=== PATIENT | male | born 1955 | race African-American/Black ===

== ENCOUNTER 2020-07-30 07:25 | Day surgery (SDC) | payer OTHER, SELFPAY ==
[2020-07-26 16:06] VITALS: BMI 27.2
--- NOTE | 2020-07-29 09:01 | HO.ANESPROP2 ---
HPI - Anesthesia Eval Consult details Narrative: 64yo M for Colonoscopy PMFSH Past Medical History Medical History Gout Hyperlipidemia Surgical History Surgical History Hx of colonoscopy Hx of esophagogastroduodenoscopy Hx of hemorrhoidectomy Social History Social History Smoking Status: Unknown if ever smoked Use of substances other than those prescribed or required for medical reasons: No Advance Directives: No Advance Directives Information Provided: No Advance Directives on File: No Meds Allergies Allergy/AdvReac Type Severity Reaction Status Date / Time No Known Allergies Allergy Verified 07/30/20 08:12 Home Medications Medication Instructions Recorded Confirmed Type allopurinol 300 mg PO DAILY 07/26/20 07/30/20 History atorvastatin 10 mg PO DAILY 07/26/20 07/30/20 History Exam Exam Date and Time: July 29, 2020 0901 Height,Weight and Vital Signs: Height 5 ft 8.5 in Weight 82.554 kg Pertinent Lab Results Pertinent Lab Results: Laboratory Tests 04/16/20 11:43 Sodium 140 Potassium 4.4 Chloride 102 BUN 17 H Creatinine 1.15 Assessment and Plan Assessment Anesthesia Assessment: Chart Reviewed
[2020-07-30 08:23] VITALS: BP 138/91; PULSE 66; RESP 16; TEMP 36.7; O2SAT 98
[2020-07-30] MEDS: Lactated Ringers 1,000 ML 100 ML IVCONT (08:28)
--- NOTE | 2020-07-30 08:58 | MHC.SHP ---
Pre-Procedural Eval Section A The patient is an INPATIENT: No Changes since office visit: No Cold of Flu in the past 2 weeks, No New Medical Problems, No Changes in Medication and No Patient answered all questions The History & Physical has been completed within 30 days and I have reviewed it.: Yes Section B Chief Complaint: screening Allergies: Allergies Allergy/AdvReac Type Severity Reaction Status Date / Time No Known Allergies Allergy Verified 07/30/20 08:12 Plan Patient has been examined and remains a candidate for the planned procedure
[2020-07-30 09:26] VITALS: BP 103/71; PULSE 79; RESP 14; TEMP 36.2; O2SAT 98
--- NOTE | 2020-07-30 09:26 | PM.OP ---
Brief Operative Note Date of Service: 07/30/20 Pre-op diagnosis: screening Post-op diagnosis: same (colon polyps) Procedure: colonoscopy Surgeon: Panfilo Garcia Anesthesia: MAC Estimated blood loss (mL): 5 Pathology: other (colon polyps) Condition: stable Disposition: PACU
[2020-07-30 09:44] VITALS: BP 134/83; PULSE 63; RESP 16; TEMP 36.2; O2SAT 99
--- NOTE | 2020-07-30 09:56 | OP_ITS ---
SURGEON: Panfilo Garcia MD INDICATIONS: Colon cancer screening. PREOPERATIVE DIAGNOSIS: POSTOPERATIVE DIAGNOSIS: PROCEDURE PERFORMED: ESTIMATED BLOOD LOSS: COMPLICATIONS: ANESTHESIA: ASSISTANTS: SPECIMENS: PROCEDURE: Colonoscopy to the terminal ileum with biopsy. MEDICATIONS: Monitored anesthesia care. DESCRIPTION OF PROCEDURE: History and physical performed. The risks and benefits of the procedure were explained to the patient and informed consent was obtained. The patient was placed in left lateral decubitus position. A digital rectal exam was performed and was found to be normal. The Olympus pediatric video colonoscope was introduced into the rectum and advanced to the cecum without difficulty. The cecum was identified by transillumination, palpation, and identification of ileocecal valve. Examination was performed. The scope was removed. He tolerated the procedure well and was transferred to recovery area in stable condition. FINDINGS: The terminal ileum was normal. The visualized colonic mucosa was normal. The quality of the prep was good. Two polyps in the cecum measured less than 5 mm were removed with biopsy forceps. Retroflexed examination showed internal hemorrhoids. IMPRESSION: Colon polyps. RECOMMENDATION: Follow up the biopsy results. MD JOYCE Bar/FRANCISCO / [id number]
== END 2020-07-30 23:59 | disposition home or self-care (01) ==
PROVIDERS: PCP Internal Medicine; Visit Provider Internal Medicine Gastroenterology
PROC: 0DJD8ZZ Inspection of Lower Intestinal Tract, Via Natural or Artificial Opening Endoscopic (ICD-10-PCS; CPT 45378; principal; 2020-07-30 09:10)
DX: Z12.11 Encounter for screening for malignant neoplasm of colon (principal); D12.0 Benign neoplasm of cecum; K64.8 Other hemorrhoids
CPT/HCPCS: 45380; 88305

== ENCOUNTER 2020-10-18 09:00 | Outpatient (REF) | payer OTHER, SELFPAY ==
[2020-10-18 10:25] LABS: Alanine Aminotransferase 21 U/L (0-40); Albumin Level 3.8 g/dL (3.5-5.0); Alkaline Phosphatase 64 U/L (39-117); Anion Gap 12 (12-20); Aspartate Amino Transferase 24 U/L (5-37); Bilirubin Total 0.7 mg/dL (0.0-1.0); Blood Urea Nitrogen 17 mg/dL (9-16); Calcium 9.2 mg/dL (8.4-10.2); Carbon Dioxide 29 mmol/L (22-29); Chloride 104 mmol/L (96-108); Cholesterol 179 mg/dL; Estimated Glomerular Filt Rate > 60; Glucose Fasting 106 mg/dL (60-99); HDL Cholesterol 62 mg/dL; LDL Cholesterol Calculated 92 mg/dl; Potassium 4.2 mmol/L (3.3-5.1); Sodium 141 mmol/L (135-145); Total Protein 7.2 g/dL (6.5-8.0); Triglycerides 125 mg/dL; Uric Acid 5.5 mg/dL (3.4-7.0)
== END 2020-10-18 09:01 | disposition home or self-care (01) ==
LOC: HO.LAB 09:00
PROVIDERS: PCP Internal Medicine; Visit Provider Internal Medicine
DX: E78.00 Pure hypercholesterolemia, unspecified (principal); M1A.0720 Idiopathic chronic gout, left ankle and foot, without tophus (tophi)
CPT/HCPCS: 36415; 80053; 80061; 84550

== ENCOUNTER 2021-04-23 08:32 | Outpatient (REF) | payer OTHER, SELFPAY ==
[2021-04-23 09:53] LABS: Alanine Aminotransferase 17 U/L (0-40); Albumin Level 4.2 g/dL (3.5-5.0); Alkaline Phosphatase 62 U/L (39-117); Anion Gap 13 (12-20); Aspartate Amino Transferase 22 U/L (5-37); Bilirubin Total 0.5 mg/dL (0.0-1.0); Blood Urea Nitrogen 24 mg/dL (9-16); Calcium 9.9 mg/dL (8.4-10.2); Carbon Dioxide 27 mmol/L (22-29); Chloride 105 mmol/L (96-108); Cholesterol 249 mg/dL; Estimated Glomerular Filt Rate 59; Glucose Fasting 88 mg/dL (60-99); HDL Cholesterol 69 mg/dL; LDL Cholesterol Calculated 165 mg/dl; Potassium 4.4 mmol/L (3.3-5.1); Sodium 141 mmol/L (135-145); Total Protein 7.8 g/dL (6.5-8.0); Triglycerides 77 mg/dL
== END 2021-04-23 08:33 | disposition home or self-care (01) ==
LOC: HO.LAB 08:32
PROVIDERS: PCP Internal Medicine; Visit Provider Internal Medicine
DX: E78.5 Hyperlipidemia, unspecified (principal); M10.9 Gout, unspecified
CPT/HCPCS: 36415; 80053; 80061; 84550

== ENCOUNTER 2021-10-22 10:23 | Outpatient (REF) | payer OTHER, SELFPAY ==
[2021-10-22 12:34] LABS: Alanine Aminotransferase 19 U/L (0-40); Alkaline Phosphatase 72 U/L (39-117); Anion Gap 12 (12-20); Aspartate Amino Transferase 25 U/L (5-37); Bilirubin Total 0.9 mg/dL (0.0-1.0); Blood Urea Nitrogen 21 mg/dL (9-16); Carbon Dioxide 30 mmol/L (22-29); Chloride 104 mmol/L (96-108); Cholesterol 231 mg/dL; Estimated Glomerular Filt Rate > 60; Glucose Fasting 103 mg/dL (60-99); HDL Cholesterol 69 mg/dL; LDL Cholesterol Calculated 144 mg/dl; Potassium 4.4 mmol/L (3.3-5.1); Sodium 142 mmol/L (135-145); Total Protein 7.6 g/dL (6.5-8.0); Triglycerides 90 mg/dL
[2021-10-22 12:45] LABS: Uric Acid 6.2 mg/dL (3.4-7.0)
== END 2021-10-22 10:24 | disposition home or self-care (01) ==
LOC: HO.LAB 10:23
PROVIDERS: PCP Internal Medicine; Visit Provider Internal Medicine
DX: E78.5 Hyperlipidemia, unspecified (principal); M10.9 Gout, unspecified
CPT/HCPCS: 36415; 80053; 80061; 84550

== ENCOUNTER 2022-04-24 08:07 | Outpatient (REF) | payer OTHER, SELFPAY ==
[2022-04-24 09:17] LABS: Alanine Aminotransferase 20 U/L (0-40); Albumin Level 3.9 g/dL (3.5-5.0); Alkaline Phosphatase 63 U/L (39-117); Anion Gap 13 (12-20); Aspartate Amino Transferase 24 U/L (5-37); Bilirubin Total 0.6 mg/dL (0.0-1.0); Blood Urea Nitrogen 21 mg/dL (9-16); Calcium 9.6 mg/dL (8.4-10.2); Carbon Dioxide 28 mmol/L (22-29); Chloride 104 mmol/L (96-108); Cholesterol 196 mg/dL; Estimated Glomerular Filt Rate > 60; Glucose Fasting 96 mg/dL (60-99); HDL Cholesterol 65 mg/dL; LDL Cholesterol Calculated 117 mg/dl; Potassium 4.1 mmol/L (3.3-5.1); Sodium 141 mmol/L (135-145); Total Protein 7.2 g/dL (6.5-8.0); Triglycerides 70 mg/dL; Uric Acid 4.7 mg/dL (3.4-7.0)
== END 2022-04-24 08:08 | disposition home or self-care (01) ==
LOC: HO.LAB 08:07
PROVIDERS: PCP Internal Medicine; Visit Provider Internal Medicine
DX: M10.9 Gout, unspecified (principal); E78.5 Hyperlipidemia, unspecified
CPT/HCPCS: 36415; 80053; 80061; 84550

== ENCOUNTER 2023-05-01 08:08 | Outpatient (REF) | payer OTHER, SELFPAY ==
[2023-05-01 09:32] LABS: Alanine Aminotransferase 21 U/L (0-40); Albumin Level 3.8 g/dL (3.5-5.0); Alkaline Phosphatase 61 U/L (39-117); Anion Gap 11 (12-20); Aspartate Amino Transferase 27 U/L (5-37); Bilirubin Total 0.6 mg/dL (0.0-1.0); Blood Urea Nitrogen 17 mg/dL (9-16); Calcium 9.5 mg/dL (8.4-10.2); Carbon Dioxide 27 mmol/L (22-29); Chloride 108 mmol/L (96-108); Cholesterol 169 mg/dL (<200); Estimated Glomerular Filt Rate > 60; Glucose Fasting 101 mg/dL (60-99); HDL Cholesterol 60 mg/dL (>40); LDL Cholesterol Calculated 98 mg/dL (<100); Potassium 4.3 mmol/L (3.3-5.1); Sodium 142 mmol/L (135-145); Total Protein 7.4 g/dL (6.5-8.0); Triglycerides 59 mg/dL (<150)
== END 2023-05-01 08:09 | disposition home or self-care (01) ==
LOC: HO.LAB 08:08
PROVIDERS: PCP Internal Medicine; Visit Provider Internal Medicine
DX: E78.5 Hyperlipidemia, unspecified (principal); M10.9 Gout, unspecified
CPT/HCPCS: 36415; 80053; 80061; 84550

== ENCOUNTER 2023-05-02 09:50 | Outpatient (AMB) | payer OTHER, SELFPAY ==
--- NOTE | 2023-05-02 09:51 | MHC.PC.OV ---
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 Accompanied by: Self / Same As Patient Allergies No Known Allergies Allergy (Verified 05/02/23 10:06) Medication List - Last Reconciled 05/02/23 by Lalitha Zavala MD allopurinol 300 mg PO DAILY atorvastatin 20 mg PO BEDTIME 90 days cetirizine (All Day Allergy (cetirizine)) 10 mg PO DAILY PRN 90 days prednisone 10 mg PO DIRECTED PRN 9 days Tobacco use date assessed: 11/09/22 Fall risk assessment: No Falls in past year Last assessed Fall Risk: 05/02/23 Dental Screening Dental Screen Date: 05/02/23 Did you have a dental visit in the last 12 months?: Yes Did you have a dental problem in the last 6 months where you did not have access to dental care?: No Was dental information given to patient?: Patient has dentist HPI HPI Comments History of Present Illness Details This is a 67-year-old male that comes for his physical exam. Last colonoscopy was 2019. No chest pain or shortness of breath. Labs were discussed. [facility] Medical History (Updated 11/09/22 @ 13:44 by Lalitha Zavala MD) Dyslipidemia Gout Overweight Surgical History Hx of colonoscopy Hx of esophagogastroduodenoscopy Hx of hemorrhoidectomy Family History Father Diabetes Mother Chronic mental illness Alzheimers disease Brother No problems noted. Brother No problems noted. Son No problems noted. Son No problems noted. Daughter No problems noted. Daughter No problems noted. Daughter No problems noted. Sister Diabetes Social History Housing: House Alcohol intake: current Alcohol intake frequency: a few times a week Alcohol type: beer and hard liquor Patient Tobacco Use Status: Never used Tobacco e-Cigarette/Vaping Use: Never Used Second Hand Smoke Exposure: No service: No Current occupational status: employed Current occupational exposures/hazards: No Cognitive needs: No Hearing needs: No Vision needs: No Questionnaire Thrive Questionnaire Date Thrive assessed: 11/09/22 SANDIE-7 AMB Questionnaire SANDIE-7 Date SANDIE - 7 assessed: 11/09/22 Source: Developed by Drs. Gavino Araujo, Kaylin Ricks, Prashant Obrien and colleagues, with an educational steffen from [employer] Review of Systems Const All systems reviewed & are unremarkable except as noted in HPI and below Eyes Reports no additional complaints, Denies change in vision and Denies other visual disturbances Card Denies chest pain at rest, Denies chest pain with activity, Denies edema, Denies irregular heart rhythm, Denies claudication, Denies dyspnea, Denies dyspnea on exertion, Denies orthopnea, Denies paroxysmal nocturnal dyspnea and Denies slow heart rate Resp Denies cough, Denies dyspnea and Denies dyspnea on exertion GI Denies abdominal pain, Denies change in bowel habits, Denies excessive flatus, Denies nausea and Denies vomiting Denies urinary hesitancy, Denies urinary incontinence and Denies urinary urgency Musc Denies abnormal gait, Denies atrophy, Denies deformity and Denies limited range of motion Skin/Breast Denies bleeding lesions, Denies changing lesions and Denies rash Neuro Denies abnormal gait and Denies lack of coordination Physical exam (Primary Care) Vital Signs: Last Vital Signs BP 130/80 05/02/23 09:52 BMI result Body Mass Index 28.2 Tobacco/Smoking Status: Tobacco use Status Tobacco use date assessed 11/09/22 05/02/23 09:57 Patient Tobacco Use Status Never used Tobacco 05/02/23 09:57 e-Cigarette/Vaping Use Never Used 05/02/23 09:57 Thrive Assessment: Date of Thrive Assessment Date Thrive assessed 11/09/22 05/02/23 09:57 Const Orientation/consciousness: patient oriented x3 HENMT Head: Yes normal to inspection, Yes normocephalic and Yes atraumatic Ears: external ears normal Eyes General: appearance normal, both eyes and all related structures Eyelids: Yes eyelids normal Conjunctivae: conjunctivae normal Neck Neck: Yes normal visual inspection and Yes supple Resp Effort & Inspection: normal respiratory effort Auscultation: clear to auscultation bilaterally Cardio Jugular venous distension: no JVD Rate: regular rate Rhythm: regular rhythm Heart sounds: S1 normal heart sound present and S2 normal heart sound present GI Inspection: Yes normal to inspection Palpation (GI): Soft to palpation and nontender Auscultation: normal bowel sounds Skin General skin exam: no rashes or lesions noted Neuro General: patient oriented x3 and no focal motor deficits Extrem General: Yes full ROM Psych Appearance: grossly normal Assessment and Plan Assessment & Plan (1) Encounter for physical examination: Code(s): Z00.00 - Encounter for general adult medical examination without abnormal findings Plan: Repeat in a year Medications: Discontinued prednisone Take 3 tabs the first 3 days, then 2 tabs the next 3 days, then 1 tab the next 3 days Discontinued Reason: Patient Completed Course 10 mg PO DIRECTED 9 days PRN 18 tabs 0RF rash Coding Level of Care Code Est Pt Prev Care >65y(81315) Diagnoses Encounter for physical examination Z00.00 Time Spent (min) 31
[2023-05-02 09:52] VITALS: BP 130/80; BMI 28.2
== END 2023-05-02 10:15 | disposition home or self-care (01) ==
PROVIDERS: PCP Internal Medicine; Visit Provider Internal Medicine
DX: Z00.00 Encounter for general adult medical examination without abnormal findings (principal)
CPT/HCPCS: 99397

== ENCOUNTER 2023-12-05 11:48 | Outpatient (AMB) | payer MEDICARE, SELFPAY ==
[2023-12-05 12:11] VITALS: BP 140/88; PULSE 72; TEMP 36.8; O2SAT 96
--- NOTE | 2023-12-05 12:11 | MHC.OFFWIV ---
Intake Vital Signs 12/05/23 12:11 Height 5 ft 8 in BP 140/88 H Blood Pressure Location Rt brachial Position Sitting Pulse 72 Pulse Source Pulse Oximeter Temp 98.3 F Temp Source Oral Pulse Oximetry (%) 96 Oxygen Delivery Method Room Air Intake Visit Reasons: EP Diff Breathing Intake Note: pt says when he was sleeping he was having a hard time breathing and he was coughing some and feels like he has some SOB today but it is more at night Patient Tobacco Use Status: Never used Tobacco Allergies No Known Allergies Allergy (Verified 12/05/23 12:13) HPI HPI Comments History of Present Illness Details He presents to office with SOB He thinks it is due to working construction in his basement; was recently sanding wood Yesterday onset + cough associated No chest tightness or pain + post nasal drip without congestion + wheezing at night No fever He said breathing fine now. He denies taking medicine for it PFSH Medical History Dyslipidemia Gout Overweight Surgical History Hx of colonoscopy Hx of esophagogastroduodenoscopy Hx of hemorrhoidectomy Family History Father Diabetes Mother Chronic mental illness Alzheimers disease Brother No problems noted. Brother No problems noted. Son No problems noted. Son No problems noted. Daughter No problems noted. Daughter No problems noted. Daughter No problems noted. Sister Diabetes Social History Housing: House Alcohol intake: current Alcohol intake frequency: a few times a week Alcohol type: beer and hard liquor Patient Tobacco Use Status: Never used Tobacco e-Cigarette/Vaping Use: Never Used Second Hand Smoke Exposure: No service: No Current occupational status: employed Current occupational exposures/hazards: No Cognitive needs: No Hearing needs: No Vision needs: No Review of Systems Const Denies body aches, Denies chills, Denies fatigue and Denies fever(s) ENT Denies otalgia, Reports nasal discharge, Denies sore throat and Denies throat swelling Card Denies chest pain and Denies dyspnea Resp Denies chest congestion, Reports cough, Denies dyspnea and Reports wheezing Endo Denies fatigue Aller/Immun Denies throat swelling and Reports wheezing Physical Exam Vital Signs: Last Vital Signs Temp 98.3 F 12/05/23 12:11 Pulse 72 12/05/23 12:11 BP 140/88 H 12/05/23 12:11 Pulse Ox 96 12/05/23 12:11 Oxygen Delivery Method Room Air 12/05/23 12:11 General: Non-toxic, NAD. Speaking full sentences. Skin: Warm dry throughout Eye: EOMI HENT: Airway patent. Uvula midline. No pharyngeal erythema or edema. 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 Bilateral canals clear. TM non-erythematous, non-bulging. No TM perforation or hemotympanum noted. Respiratory: CTA bilaterally. No wheezes, rales or rhonchi Cardiac: RRR. No murmur MSK: Full ROM extremities. Neurology: A/O. No aphasia or facial droop. Gait without abnormality Psych: Good mood and affect Assessment & Plan Assessment & Plan (1) Upper respiratory infection: Code(s): J06.9 - Acute upper respiratory infection, unspecified Qualifiers: URI type: unspecified URI Qualified Code(s): J06.9 - Acute upper respiratory infection, unspecified Plan: Patient seen and evaluated. Non-toxic appearing and lungs CTA He swims 4 x per week and wanted to make sure it was okay to swim He feels wheeze is at night so we discussed proair use ONLY as needed if wheezing. To use only a few days. We discussed worsening s/s that warrant repeat evaluation Patient gave verbal understanding and had no additional questions or concerns at time of discharge All questions answered Medications: New albuterol sulfate 90 mcg/actuation dont use longer than 1 week duration 1 inh inhalation QID PRN 8.5 grams 0RF shortness of breath or wheezing Coding Level of Care Code Est Pt Level 3 (75618) Diagnoses Upper respiratory tract infection, unspecified type J06.9 URI type: unspecified URI
== END 2023-12-05 12:36 | disposition home or self-care (01) ==
PROVIDERS: PCP Internal Medicine; Visit Provider Physician Assistant
DX: J06.9 Acute upper respiratory infection, unspecified (principal)
CPT/HCPCS: 99213

== ENCOUNTER 2024-05-05 08:10 | Outpatient (REF) | payer OTHER, SELFPAY ==
[2024-05-05 09:51] LABS: Cholesterol 230 mg/dL (<200); HDL Cholesterol 63 mg/dL (>40); LDL Cholesterol Calculated 148 mg/dL (<100); Triglycerides 95 mg/dL (<150); Uric Acid 8.2 mg/dL (3.4-7.0)
== END 2024-05-05 08:11 | disposition home or self-care (01) ==
LOC: HO.LAB 08:10
PROVIDERS: PCP Internal Medicine; Visit Provider Internal Medicine
DX: M10.9 Gout, unspecified (principal); E78.5 Hyperlipidemia, unspecified
CPT/HCPCS: 36415; 80061; 84550

== ENCOUNTER 2024-05-08 10:02 | Outpatient (AMB) | payer MEDICARE, SELFPAY ==
[2024-05-08 10:07] VITALS: BP 140/72; BMI 27.1
--- NOTE | 2024-05-08 10:07 | A.OFFPC_ITS ---
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 Accompanied by: Self / Same As Patient Allergies No Known Allergies Allergy (Verified 05/08/24 10:30) Medication List - Last Reconciled 05/08/24 by Lalitha Zavala MD allopurinol 300 mg PO DAILY atorvastatin 20 mg PO BEDTIME 90 days Tobacco use date assessed: 05/08/24 Fall risk assessment: No Falls in past year Last assessed Fall Risk: 05/08/24 Dental Screening Dental Screen Date: 05/08/24 Did you have a dental visit in the last 12 months?: Yes Did you have a dental problem in the last 6 months where you did not have access to dental care?: No Was dental information given to patient?: Patient has dentist HPI HPI Comments History of Present Illness Details This is a 68-year-old male that comes for his physical exam. Colonoscopy done 2019 showing tubular adenoma next colonoscopy should be 2024. No chest pain or shortness on breath. No change in bowel or bladder habits. Has been out of his medications for few months. Labs were discussed. [facility] Medical History Overweight Dyslipidemia Gout Surgical History Hx of hemorrhoidectomy Hx of colonoscopy Hx of esophagogastroduodenoscopy Family History Father Diabetes Mother Chronic mental illness Alzheimers disease Brother No problems noted. Brother No problems noted. Son No problems noted. Son No problems noted. Daughter No problems noted. Daughter No problems noted. Daughter No problems noted. Sister Diabetes Social History (Updated 05/08/24 @ 10:54 by Lalitha Zavala MD) Housing: House Alcohol intake: current Alcohol intake frequency: holidays/special occasions only Alcohol type: beer and hard liquor Patient Tobacco Use Status: Never used Tobacco e-Cigarette/Vaping Use: Never Used Second Hand Smoke Exposure: No service: No Current occupational status: retired Cognitive needs: No Hearing needs: No Vision needs: No Questionnaire PHQ-9 Over the last 2 weeks, how often have you been bothered by any of the following problems? 1. Little interest or pleasure in doing things: not at all 2. Feeling down, depressed, or hopeless: not at all 3. Trouble falling or staying asleep, or sleeping too much: not at all 4. Feeling tired or having little energy: not at all 5. Poor appetite or overeating: not at all 6. Feeling bad about yourself - or that you are a failure or have let yourself or your family down: not at all 7. Trouble concentrating on things, such as reading the newspaper or watching television: not at all 8. Moving or speaking so slowly that other people could have noticed. Or the opposite - being so fidgety or restless that you have been moving around a lot more than usual: not at all 9. Thoughts that you would be better off or of hurting yourself in some way: not at all Total score: 0 Depression Screening Interpretation: Negative Depression Screening Done: Yes 46878 - PHQ-9 Billing: Yes Source: Developed by Drs. Gavino Araujo, Kaylin Ricks, Prashant Obrien and colleagues, with an educational steffen from [employer]. Thrive Questionnaire Date Thrive assessed: 05/08/24 I am a: Patient What is your living situation today?: I have a steady place to live Within the past 12 months, did the food you bought not last and you didn't have the money to get more?: Never true Within the past 12 months, did you worry whether your food would run out before you got money to buy more?: Never true Do you have trouble paying for medicines?: No Do you have trouble getting transportation to medical appointments?: No Do you have trouble paying your heating and electricity bill?: No Do you have trouble taking care of your child, family member or friend?: No Do you have trouble with day-to-day activities such as bathing, preparing meals, shopping, managing finances, etc.?: No Are you currently unemployed and looking for a job?: No Are you interested in more education?: No Please select the resources that you would like help with: None Currently or been in a relationship where the following occur: No concerns reported THRIVE Score: 0 AUDIT C Alcohol Use Questionnaire (AUDIT-C) 1. How often do you have a drink containing alcohol?: Monthly or less 2. How many drinks containing alcohol do you have on a typical day when you are drinking?: 1 or 2 3. How often do you have six or more drinks on one occasion?: Never Total Score: 1 Score Reviewed/Action Taken: No SANDIE-7 AMB Questionnaire SANDIE-7 Date SANDIE - 7 assessed: 05/08/24 Feeling nervous, anxious, or on edge: 0 = Not at all Not being able to stop or control worryin = Not at all Worrying too much about different things: 0 = Not at all Trouble relaxin = Not at all Being so restless that it is hard to sit still: 0 = Not at all Becoming easily annoyed or irritable: 0 = Not at all Feeling afraid as if something awful might happen: 0 = Not at all Total SANDIE-7 score (0-4 normal; 5-9 mild; 10-14 moderate; 15-21 severe): 0 Source: Developed by Drs. Gavino Araujo, Kaylin Ricks, Prashant Obrien and colleagues, with an educational steffen from [employer]. Review of Systems Const All systems reviewed & are unremarkable except as noted in HPI and below Card Denies chest pain at rest, Denies chest pain with activity, Denies edema, Denies irregular heart rhythm, Denies claudication, Denies dyspnea, Denies dyspnea on exertion, Denies orthopnea, Denies paroxysmal nocturnal dyspnea and Denies slow heart rate Resp Denies cough, Denies dyspnea and Denies dyspnea on exertion GI Denies abdominal pain, Denies change in bowel habits, Denies excessive flatus, Denies nausea and Denies vomiting Denies urinary hesitancy, Denies urinary incontinence and Denies urinary urgency Musc Denies abnormal gait, Denies atrophy, Denies deformity and Denies limited range of motion Skin/Breast Denies bleeding lesions, Denies changing lesions and Denies rash Neuro Denies abnormal gait and Denies lack of coordination Physical exam (Primary Care) Vital Signs: Last Vital Signs BP 140/72 H 05/08/24 10:07 BMI result Body Mass Index 27.1 Tobacco/Smoking Status: Tobacco use Status Tobacco use date assessed 05/08/24 05/08/24 10:12 Patient Tobacco Use Status Never used Tobacco 05/08/24 10:12 e-Cigarette/Vaping Use Never Used 05/08/24 10:12 PHQ-9: PHQ-9 Score PHQ-9: Total score 0 05/08/24 10:34 Depression Screening Interpretation: Negative Thrive Assessment: Date of Thrive Assessment Date Thrive assessed 05/08/24 05/08/24 10:13 Currently or been in a relationship where the following occur: No concerns reported [facility] Head: Yes normal to inspection, Yes normocephalic and Yes atraumatic Ears: external ears normal Eyes General: appearance normal, both eyes and all related structures Eyelids: Yes eyelids normal Conjunctivae: conjunctivae normal Neck Neck: Yes normal visual inspection and Yes supple Resp Effort & Inspection: normal respiratory effort Auscultation: clear to auscultation bilaterally Cardio Jugular venous distension: no JVD Rate: regular rate Rhythm: regular rhythm Heart sounds: S1 normal heart sound present and S2 normal heart sound present GI Inspection: Yes normal to inspection Palpation (GI): Soft to palpation and nontender Auscultation: normal bowel sounds Skin General skin exam: no rashes or lesions noted Neuro General: no focal motor deficits Extrem General: Yes full ROM Psych Appearance: grossly normal Assessment and Plan Assessment & Plan (1) Encounter for physical examination: Code(s): Z00.00 - Encounter for general adult medical examination without abnormal findings Plan: Repeat in a year. Medications: Refilled allopurinol 300 mg PO DAILY 30 tabs 6RF atorvastatin 20 mg PO BEDTIME 90 tabs 3RF 90 days E78.5 - Hyperlipidemia, unspecified Coding Level of Care Code Est Pt Prev Care >65y(23548) Diagnoses Encounter for physical examination Z00.00 Time Spent (min) 30
[2024-05-08 10:53] VITALS: BP 138/70
== END 2024-05-08 10:40 | disposition home or self-care (01) ==
PROVIDERS: PCP Internal Medicine; Visit Provider Internal Medicine
DX: Z00.00 Encounter for general adult medical examination without abnormal findings (principal)
CPT/HCPCS: 99397

== ENCOUNTER 2024-12-26 06:08 | Outpatient (REF) | payer MEDICARE, SELFPAY ==
[2024-12-26 08:19] LABS: Alanine Aminotransferase 17 U/L (0-40); Albumin Level 3.8 g/dL (3.5-5.0); Alkaline Phosphatase 67 U/L (39-117); Anion Gap 12 (12-20); Aspartate Amino Transferase 27 U/L (5-37); Bilirubin Total 0.7 mg/dL (0.0-1.0); Blood Urea Nitrogen 18 mg/dL (9-16); Calcium 9.6 mg/dL (8.4-10.2); Carbon Dioxide 27 mmol/L (22-29); Chloride 106 mmol/L (96-108); Cholesterol 171 mg/dL (<200); Estimated Glomerular Filt Rate > 60; Glucose Fasting 96 mg/dL (60-99); HDL Cholesterol 68 mg/dL (>40); LDL Cholesterol Calculated 92 mg/dL (<100); Potassium 4.4 mmol/L (3.3-5.1); Sodium 141 mmol/L (135-145); Total Protein 7.4 g/dL (6.5-8.0); Triglycerides 59 mg/dL (<150); Uric Acid 4.7 mg/dL (3.4-7.0)
== END 2024-12-26 06:09 | disposition home or self-care (01) ==
LOC: HO.LAB 06:08
PROVIDERS: PCP Internal Medicine; Visit Provider Internal Medicine
DX: Z00.00 Encounter for general adult medical examination without abnormal findings (principal); E78.5 Hyperlipidemia, unspecified; M10.9 Gout, unspecified
CPT/HCPCS: 36415; 80053; 80061; 84550

== ENCOUNTER 2025-01-01 13:22 | Outpatient (AMB) | payer MEDICARE, SELFPAY ==
--- NOTE | 2025-01-01 13:27 | MHC.PC.OV ---
Vital Signs 01/01/25 13:28 Height 5 ft 8 in Weight 171 lb BMI 26.0 BP 130/70 Blood Pressure Location Lt brachial Position Sitting Intake Visit Reasons: gout, LABS Intake Note: Patient here for follow up gout, labs Manager Requirements Required: Yes Manager Requirements Language: Bouffant Curtain Machine Tender Name: Lalitha Zavala MD Information Interpreted: non-clinical & clinical Accompanied by: Self / Same As Patient Allergies No Known Allergies Allergy (Verified 01/01/25 13:36) Medication List - Last Reconciled 01/01/25 by Lalitha Zavala MD allopurinol 300 mg PO DAILY amoxicillin 500 mg PO TID atorvastatin 20 mg PO BEDTIME 90 days Tobacco use date assessed: 01/01/25 Fall risk assessment: No Falls in past year Last assessed Fall Risk: 01/01/25 Dental Screening Dental Screen Date: 01/01/25 Did you have a dental visit in the last 12 months?: Yes Did you have a dental problem in the last 6 months where you did not have access to dental care?: No Was dental information given to patient?: Patient has dentist HPI HPI Comments History of Present Illness Details The patient is a 69-year-old male presenting with concerns regarding his cholesterol status and recent antibiotic therapy. He has undergone recent laboratory evaluations indicating well-managed cholesterol levels, assisted by his current medications?atorvastatin and allopurinol?aligned with reducing his uric acid levels, which have not been this low historically. A recent dental appointment revealed an infection necessitating antibiotic treatment, which he has initiated. He maintains a lifestyle free from tobacco use and rarely consumes alcohol. He is aware of the pneumonia vaccine recommendation post-age 65 but is undecided on receiving it during this visit. [facility] Medical History (Updated 01/01/25 @ 13:43 by Lalitha Zavala MD) Overweight Dyslipidemia Gout Surgical History Hx of hemorrhoidectomy Hx of colonoscopy Hx of esophagogastroduodenoscopy Family History Father Diabetes Mother Chronic mental illness Alzheimers disease Brother No problems noted. Brother No problems noted. Son No problems noted. Son No problems noted. Daughter No problems noted. Daughter No problems noted. Daughter No problems noted. Sister Diabetes Social History Housing: House Alcohol intake: current Alcohol intake frequency: holidays/special occasions only Alcohol type: beer and hard liquor Patient Tobacco Use Status: Never used Tobacco e-Cigarette/Vaping Use: Never Used Second Hand Smoke Exposure: No service: No Current occupational status: retired Cognitive needs: No Hearing needs: No Vision needs: No Questionnaire PHQ-9 Over the last 2 weeks, how often have you been bothered by any of the following problems? 1. Little interest or pleasure in doing things: not at all 2. Feeling down, depressed, or hopeless: not at all 3. Trouble falling or staying asleep, or sleeping too much: not at all 4. Feeling tired or having little energy: not at all 5. Poor appetite or overeating: not at all 6. Feeling bad about yourself - or that you are a failure or have let yourself or your family down: not at all 7. Trouble concentrating on things, such as reading the newspaper or watching television: not at all 8. Moving or speaking so slowly that other people could have noticed. Or the opposite - being so fidgety or restless that you have been moving around a lot more than usual: not at all 9. Thoughts that you would be better off or of hurting yourself in some way: not at all Total score: 0 Depression Screening Interpretation: Negative Depression Screening Done: Yes 38461 - PHQ-9 Billing: Yes Source: Developed by Drs. Gavino Araujo, Kaylin Ricks, Prashant Obrien and colleagues, with an educational steffen from [employer]. Thrive Questionnaire Date Thrive assessed: 01/01/25 I am a: Patient What is your living situation today?: I have a steady place to live Within the past 12 months, did the food you bought not last and you didn't have the money to get more?: Never true Within the past 12 months, did you worry whether your food would run out before you got money to buy more?: I choose not to answer this question Do you have trouble paying for medicines?: No Do you have trouble getting transportation to medical appointments?: No Do you have trouble paying your heating and electricity bill?: No Do you have trouble taking care of your child, family member or friend?: No Do you have trouble with day-to-day activities such as bathing, preparing meals, shopping, managing finances, etc.?: No Are you currently unemployed and looking for a job?: No Are you interested in more education?: No Please select the resources that you would like help with: None Currently or been in a relationship where the following occur: No concerns reported THRIVE Score: 0 AUDIT C Alcohol Use Questionnaire (AUDIT-C) 1. How often do you have a drink containing alcohol?: 2-4 times a month 2. How many drinks containing alcohol do you have on a typical day when you are drinking?: 1 or 2 3. How often do you have six or more drinks on one occasion?: Never Total Score: 2 Score Reviewed/Action Taken: No SANDIE-7 AMB Questionnaire SANDIE-7 Date SANDIE - 7 assessed: 01/01/25 Feeling nervous, anxious, or on edge: 0 = Not at all Not being able to stop or control worryin = Not at all Worrying too much about different things: 0 = Not at all Trouble relaxin = Not at all Being so restless that it is hard to sit still: 0 = Not at all Becoming easily annoyed or irritable: 0 = Not at all Feeling afraid as if something awful might happen: 0 = Not at all Total SANDIE-7 score (0-4 normal; 5-9 mild; 10-14 moderate; 15-21 severe): 0 Source: Developed by Drs. Gavino Araujo, Kaylin Ricks, Prashant Obrien and colleagues, with an educational steffen from [employer]. SANDIE-7 Assessment Billing SANDIE-7 Assessment Tool: SANDIE-7 Assessment 49269 Review of Systems Const All systems reviewed & are unremarkable except as noted in HPI and below Card Denies chest pain at rest, Denies chest pain with activity, Denies edema, Denies irregular heart rhythm, Denies claudication, Denies dyspnea, Denies dyspnea on exertion, Denies orthopnea, Denies paroxysmal nocturnal dyspnea and Denies slow heart rate Resp Denies cough, Denies dyspnea and Denies dyspnea on exertion GI Denies abdominal pain, Denies change in bowel habits, Denies excessive flatus, Denies nausea and Denies vomiting Denies urinary hesitancy, Denies urinary incontinence and Denies urinary urgency Musc Denies atrophy, Denies deformity and Denies limited range of motion Physical exam (Primary Care) Vital Signs: Last Vital Signs BP 130/70 01/01/25 13:28 BMI result Body Mass Index 26.0 Tobacco/Smoking Status: Tobacco use Status Tobacco use date assessed 01/01/25 01/01/25 13:33 Patient Tobacco Use Status Never used Tobacco 01/01/25 13:33 e-Cigarette/Vaping Use Never Used 01/01/25 13:33 PHQ-9: PHQ-9 Score PHQ-9: Total score 0 01/01/25 13:33 Depression Screening Interpretation: Negative Thrive Assessment: Date of Thrive Assessment Date Thrive assessed 01/01/25 01/01/25 13:33 Currently or been in a relationship where the following occur: No concerns reported Resp Effort & Inspection: normal respiratory effort Auscultation: clear to auscultation bilaterally Cardio Jugular venous distension: no JVD Rate: regular rate Rhythm: regular rhythm Heart sounds: S1 normal heart sound present and S2 normal heart sound present Extrem General: Yes full ROM Coding Level of Care Code Est Pt Level 3 (57466) Complex EM visit Add On G2211 Diagnoses Dyslipidemia E78.5 Idiopathic chronic gout without tophus, unspecified site M1A.00X0 Gout site: unspecified site Gout etiology: idiopathic Chronicity: chronic Presence of tophus: without tophus Tubular adenoma of colon D12.6 Additional Codes PHQ-9 - 18799 - PHQ-9 Billing: Yes ([id number]) SANDIE-7 Assessment Billing - SANDIE-7 Assessment Tool: SANDIE-7 Assessment 79297 ([id number]) Time Spent (min) 19 Assessment & Plan Assessment & Plan (1) Dyslipidemia: Code(s): E78.5 - Hyperlipidemia, unspecified Category: Medical (2) Gout: Code(s): M10.9 - Gout, unspecified Category: Medical Qualifiers: Gout site: unspecified site Gout etiology: idiopathic Chronicity: chronic Presence of tophus: without tophus Qualified Code(s): M1A.00X0 - Idiopathic chronic gout, unspecified site, without tophus (tophi) (3) Tubular adenoma of colon: Code(s): D12.6 - Benign neoplasm of colon, unspecified Category: Medical Plan Management for hyperlipidemia involves continuous administration of atorvastatin 20 mg, supported by promising cholesterol assessments and an adjustment-free allopurinol regimen managing uric acid tokens. Antibiotic therapy for the dental infection is five days adequate unless persistent symptoms coerce further dental consultation. Colonoscopy follow-up is planned within a five-year interstice regarding tubular adenomas, coordinated with pending referral to gastroenterology. The pneumonia vaccine, pending patient acceptance, could follow post-deliberation. The upcoming April physical appointment suggested no immediate new labs until pre-physical review. Patient was informed and verbally consented to the use of an ambient scribe for clinic note documentation during this visit. I discussed with the patient the overall positive management of both hyperlipidemia and gout, validated by recent laboratory results. I also explained the necessity of continuing current medications, atorvastatin and allopurinol, given their evident effectiveness. We examined the recent dental infection, noting the prescribing and administering of antibiotics for five days, without further immediate complications. I elaborated on the importance of following up on colonoscopy in five years due to past adenomatous findings and intended to facilitate a referral to our gastroenterology department. The patient was informed about the recommended pneumonia vaccine post-65 years, although he opted to consider scheduling it for a later date. Follow-up for ongoing monitoring was addressed regarding the next planned physical examination. Orders: Orders Lipid Panel 4 Months E78.5 - Hyperlipidemia, unspecified Uric Acid 4 Months M10.9 - Gout, unspecified Comprehensive [place]. Panel Fast 4 Months E78.5 - Hyperlipidemia, unspecified Referrals Gastroenterology Referral D12.6 - Benign neoplasm of colon, unspecified Patient Instructions: - Continue taking current medications as prescribed: atorvastatin 20 mg and allopurinol 300 mg. - Complete the five-day antibiotic course as directed by your dentist for the infection. - Consider scheduling a pneumonia vaccine at your next visit if you're comfortable. - Attend your physical examination scheduled for April. - Expect a follow-up referral to gastroenterology for colonoscopy scheduling. - Maintain current lifestyle practices, avoiding smoking and limiting alcohol.
[2025-01-01 13:28] VITALS: BP 130/70; BMI 26.0
--- OUTSIDE RECORDS SUMMARY | 2025-01-01 14:27 | XMS_ITS | Patient Health Record ---
Author Organization [facility] Address [address] [place] [address] Care Team Providers Care Cuff Maker Name Role Phone Lalitha Whitmore Primary Care Provider Unavailab Panfilo Mendoza Jr Unavailable Reason For Referral No Information Medications Medication SIG (Take, Route, Frequency, Duration) Notes Start Date End Date Status MiraLax (colon prep) 8.3 ounce ((238) grams mixed with Gatorade or Crystal Light orally begin at 5:00 p.m. the day before the procedure for 1 day 07/01/2020 Active Allopurinol 300 MG TAKE 1 TABLET BY JADA TH EVERY DAY Oral for 30 Active Atorvastatin Calcium 10 MG TAKE 1 TABLET BY MOUTH EVERY DAY Oral for 30 Active Immunizations Vaccine Route Administration Date Status Comme nts Influenza Unknown 07/01/2020 Refused Social History Tobacco Use: Social History Observation Description Date Details (start date - stop date) Never Smoker NA - NA Tobacco Use/Smoking Question Answer Notes Patient is a nonsmoker Alcohol Screen Question Answer Notes Did you have a drink contain ing alcohol in the past year? Yes How often did you have a dri nk containing alcohol in the past year? 4 or more times a week (4 points) How many drinks did you have on a typical day when you were drinking in the past year? 1 or 2 drinks (0 point) Points 4 Interpretation Positive Problems Problem Type SNOMED Code ICD Code Onset Dates Problem Status W/U Status Risk Notes Problem 638491125 Colon cancer screening (Z12.11) Active confirmed Problem 014027256 Encounter for other preprocedural examination (Z01.818) Active confirmed Plan Of Treatment Future Test Test Name Order Date COLONOSCOPY 07/01/2020 Insurance Providers Payer Name Payer Address Payer Phone Subscriber Number Group Number Insured Name Patient Relationship to Insured Coverage Start Date Coverage End Date [employer] ([employer]) [address] [place] [phone] [id number] PREMA GALLARDO Self - patient is the insured Medical (General) History Medical History History ICD Code gout hyperlipidemia Surgical History Surgery Date(Month/Year) HEMMORHOID SURGERY
== END 2025-01-01 13:43 | disposition home or self-care (01) ==
LOC: HO.HMCH 13:23
PROVIDERS: PCP Internal Medicine; Visit Provider Internal Medicine
DX: E78.5 Hyperlipidemia, unspecified (principal); M1A.00X0 Idiopathic chronic gout, unspecified site, without tophus (tophi); D12.6 Benign neoplasm of colon, unspecified

== ENCOUNTER → 2025-01-01 13:22 | Outpatient (BNVA) | payer MEDICARE, SELFPAY | PROVIDERS: PCP Internal Medicine; Visit Provider Internal Medicine | DX: E78.5 Hyperlipidemia, unspecified (principal); D12.6 Benign neoplasm of colon, unspecified; M1A.00X0 Idiopathic chronic gout, unspecified site, without tophus (tophi) | CPT/HCPCS: 96127; 99212 ==

== ENCOUNTER 2025-05-25 06:05 | Outpatient (REF) | payer MEDICARE, SELFPAY ==
--- OUTSIDE RECORDS SUMMARY | 2025-05-25 06:07 | XMS_ITS | Patient Health Record ---
Author Organization [facility] Address [address] [place] [address] Care Team Providers Care Quill Stripper Name Role Phone Lalitha Whitmore Primary Care Provider Unavailab Panfilo Mendoza Jr Unavailable [phone] Allergies No Known Allergies Reason For [...] Problem Status W/U Status Risk Notes Problem 912523894 Colon cancer screening (Z12.11) Active confirmed Problem 353447020 Encounter for other preprocedural examination (Z01.818) Active confirmed Vital Signs Temperature 97.8 degrees Fahrenheit 04/30/2025 Blood pressure diastolic 01 mm Hg 04/30/2025 Height 68.5 in 04/30/2025 Blood pressure systolic 001 mm Hg 04/30/2025 Weight 170.6 lbs 04/30/2025 BMI 25.56 kg/m2 04/30/2025 Encounters Encounter Location Date Provider Diagnosis [facility] [address] [place] [address] 04/30/2025 Panfilo Jose Jr Encounter for other [...] Jr, 05/29/2025 10:50:00 AM, [address] [facility] , [place], [place], [phone], Insurance Providers Payer Name Payer Address Payer Phone Subscriber Number Group Number Insured Name Patient Relationship to Insured Coverage Start Date Coverage End Date [facility] [id number] [place], [place] [id number] PCP PREMA ROBLES Self - patient is the insured 4 Medical (General) History Medical History History ICD Code gout hyperlipidemia Colonoscopy 2019, tubular adenomas x 2, 5-year follow-up Surgical History Surgery Date(Month/Year) Repair of hemorrhoids
[2025-05-25 07:37] LABS: Alanine Aminotransferase 17 U/L (0-40); Albumin Level 4.0 g/dL (3.5-5.0); Alkaline Phosphatase 65 U/L (39-117); Anion Gap 10 (12-20); Aspartate Amino Transferase 27 U/L (5-37); Blood Urea Nitrogen 21 mg/dL (9-16); Calcium 9.3 mg/dL (8.4-10.2); Carbon Dioxide 28 mmol/L (22-29); Chloride 107 mmol/L (96-108); Cholesterol 174 mg/dL (<200); Estimated Glomerular Filt Rate > 60; HDL Cholesterol 70 mg/dL (>40); Potassium 3.8 mmol/L (3.3-5.1); Sodium 141 mmol/L (135-145); Total Protein 7.3 g/dL (6.5-8.0); Triglycerides 60 mg/dL (<150); Uric Acid 4.8 mg/dL (3.4-7.0)
== END 2025-05-25 06:06 | disposition home or self-care (01) ==
LOC: HO.LAB 06:05
PROVIDERS: PCP Internal Medicine; Visit Provider Internal Medicine
DX: E78.5 Hyperlipidemia, unspecified (principal); M10.9 Gout, unspecified
CPT/HCPCS: 36415; 80053; 80061; 84550

== ENCOUNTER 2025-05-26 15:42 | Outpatient (AMB) | payer OTHER, SELFPAY ==
[2025-05-26 15:56] VITALS: BP 142/62; PULSE 87; RESP 18; TEMP 36.4; O2SAT 97; BMI 25.7
--- NOTE | 2025-05-26 15:56 | MHC.PC.OV ---
Vital Signs 05/26/25 15:56 Height 5 ft 8 in Weight 169 lb 4 oz BMI 25.7 BP 142/62 H Blood Pressure Location Lt brachial Position Sitting Respiration 18 Pulse 87 Pulse Source Pulse Oximeter Temp 97.5 F Temp Source Temporal Artery Scan Pulse Oximetry (%) 97 Oxygen Delivery Method Room Air Intake Visit Reasons: Annual Exam Pan Pusher Required: No Accompanied by: Self / Same As Patient Allergies No Known Allergies Allergy (Verified 05/26/25 16:07) Medication List - Last Reconciled 05/26/25 by Lalitha Zavala MD allopurinol 300 mg PO DAILY atorvastatin 20 mg PO BEDTIME 90 days Tobacco use date assessed: 05/26/25 Fall risk assessment: No Falls in past year Last assessed Fall Risk: 05/26/25 Dental Screening Dental Screen Date: 05/26/25 Did you have a dental visit in the last 12 months?: Yes Did you have a dental problem in the last 6 months where you did not have access to dental care?: No Was dental information given to patient?: Patient has dentist HPI HPI Comments History of Present Illness Details The patient is a 69-year-old male presenting for an annual physical examination. The patient has a history of hyperlipidemia, for which he is currently taking atorvastatin 20 mg. He reports no adverse effects from the medication and denies any symptoms such as chest pain or shortness of breath. The patient also has a history of gout, managed with allopurinol. He reports excellent renal function and a low uric acid level of 4.8 mg/dL, indicating effective management of the condition. Preventative care measures include a scheduled colonoscopy on May 29. [facility] Medical History Overweight Dyslipidemia Gout Surgical History Hx of hemorrhoidectomy Hx of colonoscopy Hx of esophagogastroduodenoscopy Family History Father Diabetes Mother Chronic mental illness Alzheimers disease Brother No problems noted. Brother No problems noted. Son No problems noted. Son No problems noted. Daughter No problems noted. Daughter No problems noted. Daughter No problems noted. Sister Diabetes Social History Housing: House Alcohol intake: current Alcohol intake frequency: holidays/special occasions only Alcohol type: beer and hard liquor Patient Tobacco Use Status: Never used Tobacco e-Cigarette/Vaping Use: Never Used Second Hand Smoke Exposure: No service: No Current occupational status: retired Cognitive needs: No Hearing needs: No Vision needs: No Questionnaire Thrive Questionnaire Date Thrive assessed: 01/01/25 I am a: Patient What is your living situation today?: I have a steady place to live Within the past 12 months, did the food you bought not last and you didn't have the money to get more?: Never true Within the past 12 months, did you worry whether your food would run out before you got money to buy more?: I choose not to answer this question Do you have trouble paying for medicines?: No Do you have trouble getting transportation to medical appointments?: No Do you have trouble paying your heating and electricity bill?: No Do you have trouble taking care of your child, family member or friend?: No Do you have trouble with day-to-day activities such as bathing, preparing meals, shopping, managing finances, etc.?: No Are you currently unemployed and looking for a job?: No Are you interested in more education?: No Please select the resources that you would like help with: None Currently or been in a relationship where the following occur: No concerns reported THRIVE Score: 0 SANDIE-7 AMB Questionnaire SANDIE-7 Date SANDIE - 7 assessed: 01/01/25 Source: Developed by Drs. Gavino Araujo, Kaylin Ricks, Prashant Obrien and colleagues, with an educational steffen from [employer]. Review of Systems Const All systems reviewed & are unremarkable except as noted in HPI and below Card Denies chest pain at rest, Denies chest pain with activity, Denies edema, Denies irregular heart rhythm, Denies claudication, Denies dyspnea, Denies dyspnea on exertion, Denies orthopnea, Denies paroxysmal nocturnal dyspnea and Denies slow heart rate Resp Denies cough, Denies dyspnea and Denies dyspnea on exertion Neuro Denies lack of coordination Physical exam (Primary Care) Vital Signs: Last Vital Signs Temp 97.5 F 05/26/25 15:56 Pulse 87 05/26/25 15:56 Resp 18 09/30/25 15:56 BP 142/62 H 05/26/25 15:56 Pulse Ox 97 05/26/25 15:56 Oxygen Delivery Method Room Air 05/26/25 15:56 BMI result Body Mass Index 25.7 Tobacco/Smoking Status: Tobacco use Status Tobacco use date assessed 05/26/25 05/26/25 16:01 Patient Tobacco Use Status Never used Tobacco 05/26/25 16:01 e-Cigarette/Vaping Use Never Used 05/26/25 16:01 Thrive Assessment: Date of Thrive Assessment Date Thrive assessed 01/01/25 05/26/25 16:01 Currently or been in a relationship where the following occur: No concerns reported HENMT Head: Yes normal to inspection, Yes normocephalic and Yes atraumatic Ears: external ears normal Eyes General: appearance normal, both eyes and all related structures Eyelids: Yes eyelids normal Conjunctivae: conjunctivae normal Neck Neck: Yes normal visual inspection and Yes supple Resp Effort & Inspection: normal respiratory effort Auscultation: clear to auscultation bilaterally Cardio Jugular venous distension: no JVD Rate: regular rate Rhythm: regular rhythm Heart sounds: S1 normal heart sound present and S2 normal heart sound present GI Inspection: Yes normal to inspection Palpation (GI): Soft to palpation and nontender Auscultation: normal bowel sounds Skin General skin exam: no rashes or lesions noted Neuro General: no focal motor deficits Extrem General: Yes full ROM Psych Appearance: grossly normal Coding Level of Care Code Est Pt Prev Care >65y(04543) Diagnoses Encounter for physical examination Z00.00 Time Spent (min) 30 Assessment & Plan Assessment & Plan (1) Encounter for physical examination: Code(s): Z00.00 - Encounter for general adult medical examination without abnormal findings Category: Medical Plan Plan Patient was informed and verbally consented to the use of an ambient scribe for clinic note documentation during this visit. 1. Encounter for general adult medical examination without abnormal findings Z00.00 A colonoscopy is scheduled for May 29 as part of routine cancer screening.
--- OUTSIDE RECORDS SUMMARY | 2025-05-26 16:56 | XMS_ITS | Patient Health Record ---
Author Organization [facility] Address [address] [place] [address] Care Team Providers Care Multilith Operator Name Role Phone Lalitha Whitmore Primary Care Provider Unavailab Panfilo Mendoza Jr Unavailable [phone] Allergies No Known Allergies Reason For Referral [...] Problem Status W/U Status Risk Notes Problem [id number] Colon cancer screening (Z12.11) Active confirmed Problem [id number] Encounter for other preprocedural examination (Z01.818) Active confirmed Vital Signs Temperature 97.8 degrees Fahrenheit 04/30/2025 Blood pressure diastolic 01 mm Hg 04/30/2025 Height 68.5 in 04/30/2025 Blood pressure systolic 001 mm Hg 04/30/2025 Weight 170.6 lbs 04/30/2025 BMI 25.56 kg/m2 04/30/2025 Encounters Encounter Location Date Provider Diagnosis [facility] [address] [place] [address] 04/30/2025 Panfilo Jose Jr Encounter for other [...] Seda rg Jr, 05/29/2025 10:50:00 AM, [address] [facility] , [place], [place], [phone], Insurance Providers Payer Name Payer Address Payer Phone Subscriber Number Group Number Insured Name Patient Relationship to Insured Coverage Start Date Coverage End Date [facility] [id number] [place], [place] [id number] PCP PREMA ROBLES Self - patient is the insured 4 Medical (General) History Medical History History ICD Code gout hyperlipidemia Colonoscopy 2019, tubular adenomas x 2, 5-year follow-up Surgical History Surgery Date(Month/Year) Repair of hemorrhoids
== END 2025-05-26 16:17 | disposition home or self-care (01) ==
LOC: HO.HMCH 15:43
PROVIDERS: PCP Internal Medicine; Visit Provider Internal Medicine
DX: Z00.00 Encounter for general adult medical examination without abnormal findings (principal)

== ENCOUNTER 2025-05-29 08:41 | Day surgery (SDC) | payer MEDICARE, SELFPAY ==
--- OUTSIDE RECORDS SUMMARY | 2025-05-13 11:16 | XMS_ITS | Patient Health Record ---
Author Organization [facility] Address [address] [place] [address] Care Team Providers Care Microstrategy Bi Developer Name Role Phone Lalitha Whitmore Primary Care Provider Unavailab Panfilo Mendoza Jr Unavailable [phone] Allergies No Known Allergies Reason For Referral No Information Medications Medication SIG (Take, Route, Frequency, Duration) Notes Start Date End Date Status Atorvastatin Calcium 10 MG TAKE 1 TABLET BY MOUTH EVERY DAY Oral for 30 Active Allopurinol 300 MG TAKE 1 TABLET BY JADA TH EVERY DAY Oral for 30 Active Immunizations Vaccine Route Administration Date Status Comme nts Influenza Unknown 07/01/2020 Refused Influenza Unknown 04/30/2025 Refused Social History Tobacco Use: Social History [...] Problem Status W/U Status Risk Notes Problem 828027424 Colon cancer screening (Z12.11) Active confirmed Problem 384312438 Encounter for other preprocedural examination (Z01.818) Active confirmed Vital Signs Temperature 97.8 degrees Fahrenheit 04/30/2025 Blood pressure diastolic 01 mm Hg 04/30/2025 Height 68.5 in 04/30/2025 Blood pressure systolic 001 mm Hg 04/30/2025 Weight 170.6 lbs 04/30/2025 BMI 25.56 kg/m2 04/30/2025 Encounters Encounter Location Date Provider Diagnosis [facility] [address] [place] [address] 04/30/2025 Panfilo Jose Jr Encounter for other preprocedural examination Z01.818 and Colon cancer screening Z12.11 Assessments Encounter Date Diagnosis (ICD Code) Assessment Notes Treatment Notes Treatment Clinical Notes Section Notes 04/30/2025 Colon cancer screening (ICD-10 - Z12.11) We discussed colonoscopy today. We discussed risks and benefits of the procedure today. He understands these and agrees to proceed. This will be scheduled at his convenience. 04/30/2025 Encounter for other preprocedural examination (ICD-10 - Z01.818) We discussed colonoscopy today. We discussed risks and benefits of the procedure today. He understands these and agrees to proceed. This will be scheduled at his convenience. Plan Of Treatment Future Test Test Name Order Date COLONOSCOPY 07/01/2020 COLONOSCOPY 04/30/2025 Next Appt Details Provider Name:Panfilo Seda rg Jr, 05/29/2025 10:50:00 AM, [address] [facility] , [place], [place], [phone], Insurance Providers Payer Name Payer Address Payer Phone Subscriber Number Group Number Insured Name Patient Relationship to Insured Coverage Start Date Coverage End Date [facility] [id number] [place], [place] [id number] PCP PREMA ROBLES Self - patient is the insured 4 Medical (General) History Medical History History ICD Code gout hyperlipidemia Colonoscopy 2019, tubular adenomas x 2, 5-year follow-up Surgical History Surgery Date(Month/Year) Repair of hemorrhoids
[2025-05-27 12:41] VITALS: BMI 25.6
--- NOTE | 2025-05-27 14:59 | HO.ANESPROP2 ---
Documented by User: Meghana Frias NP 05/27/25 14:59 HPI - Anesthesia Eval Consult details Narrative: 69yo M for Colonoscopy PMFSH Active Problems Active Problems: All Active Problems Tubular adenoma of colon (Acute) Upper respiratory infection (Acute) Skin lesion (Acute) Encounter for physical examination (Acute) Overweight (Acute) Dyslipidemia (Acute) Gout (Acute) Past Medical History Medical History Overweight Dyslipidemia Gout Family History Family History Father Diabetes Mother Chronic mental illness Alzheimers disease Brother No problems noted. Brother No problems noted. Son No problems noted. Son No problems noted. Daughter No problems noted. Daughter No problems noted. Daughter No problems noted. Sister Diabetes Surgical History Surgical History Hx of hemorrhoidectomy Hx of colonoscopy Hx of esophagogastroduodenoscopy Social History Social History Housing: House Alcohol intake: current Alcohol intake frequency: holidays/special occasions only Alcohol type: beer and hard liquor Patient Tobacco Use Status: Never used Tobacco e-Cigarette/Vaping Use: Never Used Second Hand Smoke Exposure: No Use of substances other than those prescribed or required for medical reasons: No Advance Directives: No Advance Directives Information Provided: Yes service: No Current occupational status: retired Cognitive needs: No Hearing needs: No Vision needs: No Meds Allergies Allergy/AdvReac Type Severity Reaction Status Date / Time No Known Allergies Allergy Verified 05/26/25 16:07 Home Medications ?Medication ?Instructions ?Recorded ?Confirmed ?Last Taken ?Type atorvastatin 20 mg tablet 10 mg PO BEDTIME 05/27/25 05/27/25 Unknown History Exam Height,Weight and Vital Signs: Height 5 ft 8.5 in Weight 77.383 kg Assessment and Plan Assessment Anesthesia Assessment: Chart Reviewed Documented by User: Tonia Cabrera MD 05/29/25 10:11 [facility] Past Medical History Medical History Overweight Dyslipidemia Gout Family History Family History Father Diabetes Mother Chronic mental illness Alzheimers disease Brother No problems noted. Brother No problems noted. Son No problems noted. Son No problems noted. Daughter No problems noted. Daughter No problems noted. Daughter No problems noted. Sister Diabetes Surgical History Surgical History Hx of hemorrhoidectomy Hx of colonoscopy Hx of esophagogastroduodenoscopy History of Problems with Anesthesia: No Social History Social History Housing: House Alcohol intake: current Alcohol intake frequency: holidays/special occasions only Alcohol type: beer and hard liquor Patient Tobacco Use Status: Never used Tobacco e-Cigarette/Vaping Use: Never Used Second Hand Smoke Exposure: No Use of substances other than those prescribed or required for medical reasons: No Advance Directives: No Advance Directives Information Provided: Yes service: No Current occupational status: retired Cognitive needs: No Hearing needs: No Vision needs: No Meds Allergies Allergy/AdvReac Type Severity Reaction Status Date / Time No Known Allergies Allergy Verified 05/26/25 16:07 Home Medications ?Medication ?Instructions ?Recorded ?Confirmed ?Last Taken ?Type atorvastatin 20 mg tablet 10 mg PO BEDTIME 05/27/25 05/27/25 Unknown History Exam Airway Mallampati Class: III TM Dist: >3cm Neck ROM: Full Partial: Upper and Lower Loose/Missing/Broken Teeth: Yes, Upper and Lower Heart: RRR Lungs: CTA Assessment and Plan Assessment Anesthesia Assessment: Anesthesia Plan Discussed Final Anesthetic Review History of Problems with Anesthesia: No NPO: Yes ASA Class: II Final Preanesthetic Review: Meds/Allgs Chart Reviewed, Consent Obtained/Reviewed and Anes Risks/Benef Reviewed Patient Risk: Low Procedure Risk: Low Anesthetic Plan Anesthetic Plan: MAC: Disposition: Standard PACU
[2025-05-29 09:19] VITALS: BMI 25.5
[2025-05-29] MEDS: Lactated Ringers 1,000 ML 100 ML IVCONT (09:32)
[2025-05-29 09:33] VITALS: BP 167/80; PULSE 53; RESP 16; TEMP 36.4; O2SAT 99
--- NOTE | 2025-05-29 10:59 | MHC.SHP ---
Pre-Procedural Eval Section A - 24 Hr Update-Section A only Date of Service: 05/29/25 The patient is an INPATIENT: No Changes since office visit: No Cold of Flu in the past 2 weeks, No New Medical Problems, No Changes in Medication and No Patient answered all questions The patient has been examined within 24 hours of the surgical procedure. The History & Physical has been completed within 30 days and I have reviewed it.: Yes Section B - Complete if H&P > 30 days Chief Complaint: screening Allergies: Allergies Allergy/AdvReac Type Severity Reaction Status Date / Time No Known Allergies Allergy Verified 05/26/25 16:07 Plan I have reviewed the history and physical and performed a pertinent physical examination on my patient. No changes have occurred unless specified. Time Spent With Patient Time: Total time managing care of this patient today ____ minutes.
[2025-05-29 11:46] VITALS: BP 120/75; PULSE 77; RESP 16; TEMP 36.3; O2SAT 98
[2025-05-29 12:01] VITALS: BP 154/85; PULSE 50; RESP 18; TEMP 36.3; O2SAT 100
--- NOTE | 2025-05-29 22:37 | OP_ITS ---
DATE OF SERVICE: 05/29/2025 SURGEON: Panfilo Garcia MD INDICATIONS: Colon cancer screening and prior history of adenomatous colon polyps. PREOPERATIVE DIAGNOSIS: POSTOPERATIVE DIAGNOSIS: PROCEDURE PERFORMED: Colonoscopy to the terminal ileum with biopsy and snare polypectomy. ESTIMATED BLOOD LOSS: COMPLICATIONS: ANESTHESIA: Monitored anesthesia care. ASSISTANTS: SPECIMENS: DESCRIPTION OF PROCEDURE: History and physical performed. The risks and benefits of the procedure were explained to the patient. Informed consent was obtained. The patient was placed in the left lateral decubitus position. A digital rectal exam was performed and was found to be normal. Some external skin tags were present. The Olympus pediatric video colonoscope was introduced into the rectum and advanced to the cecum. The cecum was identified by transillumination, palpation, and identification of ileocecal valve. Examination was performed. The scope was removed. He tolerated the procedure well and was taken to recovery in stable condition. FINDINGS: The terminal ileum was examined and appeared normal. The visualized colonic mucosa was normal. The quality of the prep was good. Several polyps were identified and removed. The polyp in the hepatic flexure was removed using a cold snare and recovered via suction. This measured approximately 5 mm. A less than 5 mm sessile polyp at 55 cm was removed with biopsy forceps and a 10 mm polyp at 50 cm was removed with a snare and recovered via suction. No other polyps were identified. Retroflex examination showed internal hemorrhoids. IMPRESSION: Colon polyps. RECOMMENDATION: Follow up the biopsy results. MD JOYCE Bar/FRANCISCO / [id number] MTDSeda
== END 2025-05-29 12:20 | disposition home or self-care (01) ==
PROVIDERS: PCP Internal Medicine; Visit Provider Internal Medicine Gastroenterology
PROC: 0DJD8ZZ Inspection of Lower Intestinal Tract, Via Natural or Artificial Opening Endoscopic (ICD-10-PCS; CPT 45378; principal; 2025-05-29 10:50)
DX: Z12.11 Encounter for screening for malignant neoplasm of colon (principal); D12.3 Benign neoplasm of transverse colon; D12.6 Benign neoplasm of colon, unspecified; K63.5 Polyp of colon; K64.8 Other hemorrhoids; K64.4 Residual hemorrhoidal skin tags; Z86.0101 Personal history of adenomatous and serrated colon polyps
CPT/HCPCS: 45385; 45380; 88305; J2003; J2704

== ENCOUNTER 2025-06-18 13:18 | Outpatient (AMB) | payer MEDICARE, SELFPAY ==
--- OUTSIDE RECORDS SUMMARY | 2025-05-29 06:50 | XMS_ITS ---
Author Organization [facility] Address [address] [place] [address] Care Team Providers Care Gill Box Tender Name Role Phone Lalitha Whitmore Primary Care Provider Unavailab Panfilo Mendoza Jr REASON FOR VISIT screening Medications Medication SIG (Take, Route, Frequency, Duration) Notes Start Date End Date Status Allopurinol 300 MG TAKE 1 TABLET BY JADA TH EVERY DAY Oral; Duration: 30 Active Atorvastatin Calcium 10 MG TAKE 1 TABLET BY MOUTH EVERY DAY Oral; Duration: 30 Active Encounters Encounter Location Date Provider Diagnosis [facility] [address] [place], [place] [phone] 05/29/2025 Panfilo Garcia Jr Plan Of Treatment No Information Progress Notes * MIKE ROBLESODOB :1955 (69 yo M)Acc No.[id number]:05/29/2025 COLON WITH MAC Patient: Arsen DACOSTAPREMA ALVARADO Provider: Harris Garcia MD :1955 A ge:69 Y S ex:Male Date:05/29/2025 Address:[address] [place] [address] [id number] Pcp:Lalitha Zavala Subjective: * Chief Complaints: * 1 . Screening. * Medical History: * Medications: T aking Atorvastatin Calcium 10 MG Tablet TAKE 1 TABLET BY MOUTH EVERY DAY Oral , Taking Allopurinol 300 MG Tablet TAKE 1 TABLET BY MOUTH EVERY DAY Oral Objective: * Vitals: Assessment: Plan: * Treatment: * * The named appointment provid er may or may not be the originator of this progress note, and it is not deemed complete until electronically signed by the appointment provider. Sign off status: Pending * Provider: Harris Garcia MD Date: Generated for Avani billy/Daniel/Estelita on: 04:47 PM EDT
[2025-06-18 13:21] VITALS: BP 146/82; PULSE 90; TEMP 36.5; O2SAT 98; BMI 25.5
--- NOTE | 2025-06-18 13:21 | MHC.OFFWIV ---
Intake Vital Signs 06/18/25 13:21 Height 5 ft 8.5 in Weight 170 lb BMI 25.5 BP 146/82 H Blood Pressure Location Lt brachial Position Sitting Pulse 90 Pulse Source Pulse Oximeter Temp 97.7 F Temp Source Oral Pulse Oximetry (%) 98 Oxygen Delivery Method Room Air Intake Visit Reasons: EP-rash in private area Intake Note: pt presents with itchy rash to genitals and groin area for 2 weeks Patient Tobacco Use Status: Never used Tobacco Allergies No Known Allergies Allergy (Verified 06/18/25 13:27) Do you need a note to return to daycare/school/sports/work: No HPI HPI Comments History of Present Illness Details History - The patient is a 69-year-old male presenting with a rash in the groin area. - The rash has been present for three weeks and is located in the groin area, including the testicles. - The patient has tried using a cream without improvement. - The patient has been swimming for three years without previous occurrences of this rash. - The rash is described as itchy and is suspected to be fungal in nature. - He denies new partner, new lotions, soaps, detergents, body wash, clothes, foods, pets, or travel. Physical Exam General: Cooperative, healthy appearing, comfortable, no acute distress and well developed Orientation: Patient oriented x3 Respiratory: Normal respiratory effort and able to speak in complete sentences. Clear to auscultation bilaterally. No w/r/r noted. Cardiovascular: RRR, no m/r/g noted. Normal S1 and S2 Skin: Dry white flaking noted on the inner thighs and testicles. No erythema or warmth, no discharge noted. No lesions. Patient was informed and verbally consented to the use of an ambient scribe for clinic note documentation during this visit [facility] Medical History Overweight Dyslipidemia Gout Surgical History Hx of hemorrhoidectomy Hx of colonoscopy Hx of esophagogastroduodenoscopy Family History Father Diabetes Mother Chronic mental illness Alzheimers disease Brother No problems noted. Brother No problems noted. Son No problems noted. Son No problems noted. Daughter No problems noted. Daughter No problems noted. Daughter No problems noted. Sister Diabetes Social History Housing: House Alcohol intake: current Alcohol intake frequency: holidays/special occasions only Alcohol type: beer and hard liquor Patient Tobacco Use Status: Never used Tobacco e-Cigarette/Vaping Use: Never Used Second Hand Smoke Exposure: No service: No Current occupational status: retired Cognitive needs: No Hearing needs: No Vision needs: No Review of Systems Const All systems reviewed & are unremarkable except as noted in HPI and below Physical Exam Vital Signs: Last Vital Signs Temp 97.7 F 06/18/25 13:21 Pulse 90 06/18/25 13:21 BP 146/82 H 06/18/25 13:21 Pulse Ox 98 06/18/25 13:21 Oxygen Delivery Method Room Air 06/18/25 13:21 BMI result Body Mass Index 25.5 Assessment & Plan Assessment & Plan (1) Rash: Code(s): R21 - Rash and other nonspecific skin eruption Plan Most likely fungal vs yeast vs contact dermatitis vs allergic reaction Plan - Prescribe an oral antifungal medication to be taken by mouth. - Prescribe a topical antifungal cream to be applied for three weeks. - Advise follow-up with a special population paraprofessional if the rash does not resolve with treatment. Medications: New fluconazole may repeat second dose 72 hrs after first dose if symptoms persist 150 mg PO Q3D 2 tabs 0RF terbinafine HCl 1% 1 appl topical BID 30 grams 1RF 21 days Coding Level of Care Code Est Pt Level 3 (87736) Diagnoses Rash R21
--- OUTSIDE RECORDS SUMMARY | 2025-06-18 16:48 | XMS_ITS | Patient Health Record ---
Author Organization [facility] Address [address] [place] [address] Care Team Providers Care Tarring Machine Operator Name Role Phone Lalitha Whitmore Primary Care Provider Unavailab Panfilo Mendoza Jr Unavailable Allergies No Known Allergies Results Component Value Reference Range Notes Pathology Reviewed date:06/02/2025 02:23:46 PM Interpretation: Performing Lab:[facility], [address] [place] [id number] Notes/Report: Reason For Referral No Information Medications Medication SIG (Take, Route, Frequency, Duration) Notes Start Date End Date Status Allopurinol 300 MG TAKE 1 TABLET BY JADA TH EVERY DAY Oral; Duration: 30 Active Atorvastatin Calcium 10 MG TAKE 1 TABLET BY MOUTH EVERY DAY Oral; Duration: 30 Active Immunizations Vaccine Route Administration Date [...] Problem Status W/U Status Risk Notes Problem Colon cancer screening (364276339) Colon cancer screening (Z12.11) Active confirmed Problem Pre-procedure evaluation check (378866721) Encounter for other preprocedural examination (Z01.818) Active confirmed Vital Signs Temperature 97.8 degrees Fahrenheit 04/30/2025 Blood pressure diastolic 01 mm Hg 04/30/2025 Height 68.5 in 04/30/2025 Blood pressure systolic 001 mm Hg 04/30/2025 Weight 170.6 lbs 04/30/2025 BMI 25.56 kg/m2 04/30/2025 Encounters Encounter Location Date Provider Diagnosis [facility] [place] [facility] [address] [place], [place] [phone] 05/29/2025 Panfilo Garcia Jr [facility] [address] [place] [phone] 04/30/2025 Panfilo Garcia Jr Encounter for other preprocedural examination Z01.818 and Colon cancer screening Z12.11 [facility] [address] [place] [phone] 06/02/2025 Panfilo Garcia Jr Assessments Encounter Date Diagnosis (ICD Code) Assessment [...] Name Order Date COLONOSCOPY 07/01/2020 COLONOSCOPY 04/30/2025 Insurance Providers Payer Name Payer Address Payer Phone Subscriber Number Group Number Insured Name Patient Relationship to Insured Coverage Start Date Coverage End Date [facility] [id number] [place] [id number] PCP PREMA ROBLES Self - patient is the insured 4 Medical (General) History Medical History History ICD Code gout hyperlipidemia Colonoscopy 2019, tubular adenomas x 2, 5-year follow-up Surgical History Surgery Date(Month/Year) Repair of hemorrhoids
== END 2025-06-18 14:18 | disposition home or self-care (01) ==
PROVIDERS: PCP Internal Medicine; Visit Provider Physician Assistant Medical
DX: R21 Rash and other nonspecific skin eruption (principal)

== ENCOUNTER → 2025-06-18 13:18 | Outpatient (BNVA) | payer MEDICARE, SELFPAY | PROVIDERS: PCP Internal Medicine; Visit Provider Physician Assistant Medical | DX: R21 Rash and other nonspecific skin eruption (principal) | CPT/HCPCS: 99212 ==